=== PATIENT | female | born 1985 | race Caucasian/White ===

== ENCOUNTER 2021-01-29 23:34 | Emergency (ER) | payer MEDICAID, OTHER ==
[~2021-01-29] VITALS: Ht 152.4 cm; Wt 90.7 kg
[~2021-01-29 23:34] MED LIST: ACET-7740 PO
[2021-01-29 23:44] VITALS: BP 158/93
[2021-01-29] MEDS ORDERED: DICYCLOMINE HCL LIQUID 20 MG, ALUMINUM HYD/MAG/SIMETHICONE 30 ML, LIDOCAINE VISCOUS 2% ... PO ONE ×3 (23:45)
[2021-01-29] MEDS ORDERED: ONDANSETRON 4 MG/2 ML VIAL IM ONE (23:45)
[2021-01-29] MEDS ORDERED: DICYCLOMINE HCL LIQUID 10 MG/5 ML UDC ONE (23:50)
[2021-01-29] MEDS ORDERED: ALUMINUM HYD/MAG/SIMETHICONE 30 ML UDC ONE (23:50)
[2021-01-30 01:17] LABS: BASOPHILS % (AUTO) 0.3 % (0.0-2.0); EOSINOPHILS % (AUTO) 0.2 % (0.0-4.0); HEMOGLOBIN 12.8 g/dL (12.0-16.0); LYMPHOCYTES # (AUTO) 0.9 K/uL (2.5-16.5); LYMPHOCYTES % (AUTO) 9.6 % (20.5-51.1); MEAN CORPUSCULAR HEMOGLOBIN 25 pg (27-31); MEAN CORPUSCULAR HGB CONC 32 g/dL (33-37); MEAN CORPUSCULAR VOLUME 77.6 fL (80-94); MONOCYTES # (AUTO) 0.2 K/uL (0.8-1.0); MONOCYTES % (AUTO) 2.4 % (1.7-9.3); NEUTROPHILS # (AUTO) 7.9 K/uL (1.8-7.7); NEUTROPHILS % (AUTO) 87.5 % (42.2-75.2); PLATELET COUNT (AUTO) 283 K/uL (140-450); RED BLOOD CELL COUNT(AUTO) 5.15 MIL/uL (4.20-5.40); RED CELL DISTRIBUTION WIDTH 14.5 % (11.6-13.7)
[2021-01-30 01:34] LABS: ANION GAP 12.1 (8-16); CARBON DIOXIDE 27.8 mmol/L (21-32); CREATININE 0.7 mg/dL (0.6-1.3); POTASSIUM 3.9 mmol/L (3.5-5.1); TOTAL BILIRUBIN 0.4 mg/dL (0.0-1.0)
[2021-01-30 04:14] VITALS: BP 158/93
== END 2021-01-30 04:14 | disposition left against medical advice (07) ==
LOC: MED 23:34
DX: K81.0 Acute cholecystitis (principal); R11.2 Nausea with vomiting, unspecified; R19.7 Diarrhea, unspecified; Z79.899 Other long term (current) drug therapy
CPT/HCPCS: 36415; 76705; 80053; 81025; 83690; 84703; 85025; 96372; 99284; J2405